=== PATIENT | female | born 1950 | race Two or more races ===

== ENCOUNTER → 2018-07-31 15:03 | Outpatient (CLI) | payer OTHER | END | disposition home or self-care (01) | LOC: LAB 15:03 | DX: R97.0 Elevated carcinoembryonic antigen [CEA] (principal) ==

== ENCOUNTER 2018-08-13 07:32 | Outpatient (CLI) | payer OTHER | END 2018-08-13 07:35 | disposition home or self-care (01) | LOC: SONOGRAMA 07:32 | DX: C61 Malignant neoplasm of prostate (principal); R97.20 Elevated prostate specific antigen [PSA] ==

== ENCOUNTER 2018-09-19 12:31 | Outpatient (CLI) | payer OTHER | END 2018-09-19 12:37 | disposition home or self-care (01) | LOC: LAB 12:31 | DX: R97.20 Elevated prostate specific antigen [PSA] (principal); R31.1 Benign essential microscopic hematuria ==

== ENCOUNTER 2018-10-01 11:01 | Outpatient (CLI) | payer OTHER | END 2018-10-01 11:08 | disposition home or self-care (01) | LOC: TOM 11:01 | DX: N40.0 Benign prostatic hyperplasia without lower urinary tract symptoms (principal); F52.21 Male erectile disorder; F52.4 Premature ejaculation | CPT/HCPCS: 74177; Q9965 ==

== ENCOUNTER 2018-10-07 08:39 | Outpatient (CLI) | payer OTHER | END 2018-10-07 08:54 | disposition home or self-care (01) | LOC: NUCLEAR 08:39 | DX: C61 Malignant neoplasm of prostate (principal) | CPT/HCPCS: 78320; A9503 ==